=== PATIENT | male | born 1970 | race Two or more races ===

== ENCOUNTER 2023-08-01 18:16 | Emergency (ER) | payer MEDICAID, OTHER ==
[~2023-08-01] VITALS: Ht 167.6 cm; Wt 171.3 kg
[2023-08-01] MEDS ORDERED: IBUPROFEN 800 MG TAB PO ONE (19:45)
[2023-08-01] MEDS ORDERED: ZOFR4T PO (21:01)
[2023-08-01] MEDS ORDERED: HYDR-4902 PO (21:01)
[2023-08-01 21:40] VITALS: BP 120/73; PULSE 100; RESP 22; O2SAT 92
== END 2023-08-01 21:51 | disposition home or self-care (01) ==
LOC: ER 18:16 → EDBD 18:16 → ER 21:51
DX: S82.831A Other fracture of upper and lower end of right fibula, initial encounter for closed fracture (principal); I10 Essential (primary) hypertension; E11.9 Type 2 diabetes mellitus without complications; Z79.899 Other long term (current) drug therapy; X50.1XXA Overexertion from prolonged static or awkward postures, initial encounter; Y93.89 Activity, other specified; Y92.89 Other specified places as the place of occurrence of the external cause; Y99.8 Other external cause status
CPT/HCPCS: 29505; 29515; 73610